=== PATIENT | female | born 1980 | race Caucasian/White ===

== ENCOUNTER 2017-06-27 23:54 | Emergency (ER) | payer OTHER ==
--- NOTE | 2017-06-28 00:38 | ED Physician Chart ---
ED Chief Complaint/HPI - Patient Information Date Seen:: 06/28/17 Time Seen:: 00:35 Chief Complaint:: Abdominal pain History of Present Illness:: , 28 week gestation. next appointment 07/01/17. Vomit for 2 days, 10/first, 5/ second day, abdominal cramp, heart burn, felt movement. Allergies:: Allergies Allergy/AdvReac Type Severity Reaction Status Date / Time No Known Allergies Allergy Verified 06/28/17 00:08 Vitals:: Vital Signs - 8 hr 06/28/17 00:00 Temp 98.5 F HR 106 RR 18 BP 128/80 O2 Sat % 94 ED Past Medical History - Past Medical History Past Medical History: Other (migraine) Surgical History: other (breast augmentation, wisdom teeth removal) Family Medical History - Family Member Mother Ethnicity: Non- Living Status: Hx Family Cancer: Yes (OVARIAN CANCER) Father Ethnicity: Non- Living Status: Hx Family Coronary Artery Disease: Yes Other Medical History: [place] ED Septic Shock - <6hrs of presentation: Vital Signs: Vital Signs - 8 hr 06/28/17 00:00 Temp 98.5 F HR 106 RR 18 BP 128/80 O2 Sat % 94
[2017-06-28] MEDS ORDERED: Metoclopramide 5 mg/mL 2mL Vial IVP STA (00:50)
[2017-06-28] MEDS ORDERED: Metoclopramide 5 mg/mL 2mL Vial ONE (00:58)
[2017-06-28] MEDS ORDERED: Sodium Chloride 0.9% 1,000 ML IV ONE (01:18)
[2017-06-28 01:21] LABS: % EOSINOPHILS 0.8 % (0.0-5.0); % LYMPHOCYTES 9.9 % (20.0-50.0); % MONOCYTES 5.9 % (2.0-10.0); % NEUTROPHILS 83.4 % (40.0-80.0); EOSINOPHILE ABSOLUTE 0.1 Th/cmm (0.1-0.4); HEMATOCRIT 37.1 % (41.0-60); LYMPHOCYTE ABSOLUTE 0.7 Th/cmm (1.5-3.0); MEAN CELL VOLUME 91.1 fl (81-100); MEAN CORPUSCULAR HEMOGLOBIN 31.9 pg (27.0-31.0); MEAN PLATELET VOLUME 8.3 fl; MONOCYTE ABSOLUTE 0.4 Th/cmm (0.3-1.0); NEUTROPHILE ABSOLUTE 6.1 Th/cmm (1.8-8.0); PLATELET COUNT 187 Th/cmm (150-400); RED BLOOD COUNT 4.08 Mil/cmm (3.80-5.10); RED CELL DISTRIBUTION WIDTH 11.4 % (11.5-20.0); WHITE BLOOD COUNT 7.3 Th/cmm (4.8-10.8)
[2017-06-28 01:39] LABS: ALB/GLOB RATIO 1.4 (1.0-1.8); ALBUMIN 3.7 gm/dL (3.7-5.3); ALKALINE PHOSPHATASE 78 U/L (34-104); ANION GAP 12.9 (7.0-16.0); BILIRUBIN,TOTAL 0.7 mg/dL (0.3-1.0); BUN - UREA NITROGEN 6 mg/dL (7-25); CALCIUM SERUM 8.5 mg/dL (8.6-10.3); CARBON DIOXIDE 19.7 mEq/L (21.0-31.0); CHLORIDE 104 mEq/L (98-107); CREATININE - SERUM 0.5 mg/dL (0.6-1.2); GFR AFRICAN-AMERICAN > 60.0 ml/min (>90); GFR NON AFRICAN-AMERICAN > 60.0 ml/min; GLUCOSE 101 mg/dL (70-105); POTASSIUM SERUM 3.6 mEq/L (3.5-5.1); SGOT 21 U/L (13-39); SGPT/ALT 19 U/L (7-52); SODIUM SERUM 133 mEq/L (136-145); TOTAL PROTEIN,SERUM 6.3 gm/dL (6.0-8.3)
== END 2017-06-28 02:20 | disposition home or self-care (01) ==
LOC: ER 23:54
DX: O26.893 Other specified pregnancy related conditions, third trimester (principal); O21.2 Late vomiting of pregnancy; R10.9 Unspecified abdominal pain; Z3A.28 28 weeks gestation of pregnancy
CPT/HCPCS: 99284; 96374; 36415; 85025; 80053; J2765; J7030; Z7502